=== PATIENT | female | born 1965 | race Caucasian/White ===

== ENCOUNTER 2017-09-03 08:13 | Outpatient (CLI) | payer BC ==
[2017-09-03 08:43] LABS: BASOPHILS % 0.7 (0.0-1.5); EOSINOPHILS % 9.7 % (0.0-6.8); MEAN CORPUSCULAR HEMOGLOBIN 30.1 pg (28.0-34.0); MEAN CORPUSCULAR VOLUME 95.2 fl (80.0-100.0); MONOCYTES % 3.1 % (0.0-11.0); NEUTROPHILS # 3.8 # k/uL (1.4-7.7)
[2017-09-03 16:30] LABS: TOTAL PROTEIN 6.8 g/dL (6.0-8.5)
== END 2017-09-03 08:14 ==
LOC: LAB 08:13
PROVIDERS: ATTEND Physician Assistant
DX: E03.9 Hypothyroidism, unspecified (principal); M19.90 Unspecified osteoarthritis, unspecified site; Z00.00 Encounter for general adult medical examination without abnormal findings
CPT/HCPCS: 36415; 80053; 80061; 84443; 85025; 85651; 86431